=== PATIENT | female | born 1995 | race Caucasian/White ===

== ENCOUNTER 2016-07-31 16:34 | Emergency (ER) | payer OTHER | END 2016-07-31 18:15 | disposition home or self-care (01) | DX: S00.83XA Contusion of other part of head, initial encounter (principal); W01.0XXA Fall on same level from slipping, tripping and stumbling without subsequent striking against object, initial encounter; F17.200 Nicotine dependence, unspecified, uncomplicated ==

== ENCOUNTER 2016-09-18 21:49 | Emergency (ER) | payer OTHER ==
--- NOTE | 2016-09-18 22:10 | ED Physician Documentation ---
PD HPI ABD PAIN - Stated complaint Stated Complaint: PAIN IN KIDNEY AREA - Chief complaint Chief Complaint: UTI - History obtained from History obtained from: Patient - History of Present Illness Timing - onset: How many weeks ago (2) Timing - duration: Weeks (2 weeks of mild pains in left flank and lumbar area, with significant worsening the past 2 days. No noted injury. Feels similar to kidney infections in the past, not feeling exactly like stones. Has had some lower abd pain left side the past 2 days.) Timing - details: Gradual onset, Waxing and waning (with marked worsening the past 2 days) Quality: Aching, Sharp, Pain Location: LLQ Radiation: Lower back, Left flank Improved by: Laying still, Position. No: Eating Worsened by: Moving, Position, Palpation. No: Eating, Breathing Associated symptoms: Nausea. No: Fever, Vomiting, Diarrhea, Constipation, Dysuria, Loss of appetite, Vaginal bleeding, Vaginal dc Similar symptoms before: Diagnosis (UTI and kidney stones in the past.) Recently seen: Not recently seen Review of Systems Constitutional: denies: Fever, Chills Nose: denies: Rhinorrhea / runny nose, Congestion Throat: denies: Sore throat Respiratory: denies: Cough GI: reports: Nausea. denies: Vomiting, Diarrhea, Bloody / black stool : denies: Dysuria, Frequency, Hematuria, Discharge Skin: denies: Rash, Lesions Neurologic: denies: Focal weakness, Numbness, Near syncope PD PAST MEDICAL HISTORY - Past Medical History Cardiovascular: None Respiratory: None Neuro: None Endocrine/Autoimmune: None : Kidney stones, Other (utis) - Past Surgical History Past Surgical History: No - Present Medications Home Medications: Ambulatory Orders Medication Instructions Recorded Confirmed Ibuprofen [Motrin] 400 mg PO Q6H PRN #20 tablet 01/19/16 09/18/16 Dexamethasone [Decadron] 4 mg PO DAILY #5 tablet 09/18/16 Hydrocodone/Acetaminophen [Kent 1 each PO Q6H PRN #20 tablet 09/18/16 5-325 Tablet] Ibuprofen [Motrin] 600 mg PO TID #30 tab 09/18/16 Methocarbamol [Robaxin] 500 mg PO Q6H PRN #25 tablet 09/18/16 - Allergies Allergies/Adverse Reactions: Allergies Allergy/AdvReac Type Severity Reaction Status Date / Time No Known Drug Allergies Allergy Verified 09/18/16 22:00 - Social History Does the pt smoke?: Yes Smoking Status: Current every day smoker Does the pt drink ETOH?: Yes Does the pt have substance abuse?: No - Immunizations Immunizations are current?: Yes - POLST Patient has POLST: No PD ED PE NORMAL - Vitals Vital signs reviewed: Yes - General General: Alert and oriented X 3, Well developed/nourished, Other (appears in pain and guarding movement of lumbar back) - HEENT HEENT: Atraumatic - Neck Neck: Supple, no meningeal sign, No adenopathy - Cardiac Cardiac: RRR, No murmur - Respiratory Respiratory: Clear bilaterally - Abdomen Abdomen: Normal bowel sounds, Soft, Non distended, No organomegaly, Other (mild tender left lateral abdomen without guarding nor percussion tenderness. ) - Female Female : Deferred - Rectal Rectal: Deferred - Back Back: No spinal TTP, Other (tender left lumbar and CVA area to percussion, some to palpation. ) - Derm Derm: Normal color, Warm and dry - Extremities Extremities: No tenderness to palpate, Normal ROM s pain, No edema - Neuro Neuro: Alert and oriented X 3, No motor deficit, Normal speech - Psych Psych: Normal mood, Normal affect Results - Vitals Vitals: Vital Signs - 24 hr 09/18/16 09/18/16 09/18/16 21:57 23:11 23:52 Temperature 36.6 C 36.9 C Heart Rate 84 90 74 Respiratory 18 16 16 Rate Blood Pressure 144/79 H 154/95 H 122/70 O2 Saturation 100 100 98 Oxygen O2 Source Room air - Labs Labs: Laboratory Tests 09/18/16 09/18/16 22:04 22:04 Urine Color YELLOW Urine Clarity CLEAR Urine pH 6.0 Ur Specific [place] 1.010 1.010 Urine Protein NEGATIVE Urine Glucose (UA) NEGATIVE Urine Ketones 15 H Urine Occult Blood NEGATIVE Urine Nitrite NEGATIVE Urine Bilirubin NEGATIVE Urine Urobilinogen 0.2 (NORMAL) Ur Leukocyte Esterase NEGATIVE Ur Microscopic Review NOT INDICATED Urine Culture Comments NOT INDICATED Urine HCG, Qual NEGATIVE - Rads (name of study) KUB CT Radiology: Prelim report reviewed, EMP read contemporaneously (no stones, no hydro, no acute process seen. ) PD MEDICAL DECISION MAKING - ED course Complexity details: considered differential (her pain is worse with ROM and also with palpation in upper lumbar, more to left. CT is normal and UA is clear. Abd is not tender. Presume muscular back pain, without other obvious cause at this time. Given pain meds here with moderate improvement in pain. She says she feels comofrtable enough for now. ), d/w patient Departure - Departure Disposition: 01 Home, Self Care Clinical Impression: Flank pain, acute Clinical Impression: (Ruled Out): Urinary tract infection Condition: Stable Record reviewed to determine appropriate education?: Yes Instructions: ED Flank Pain Uncertain Cause Follow-Up: [facility] [Provider Group] Prescriptions: Dexamethasone [Decadron] 4 mg PO DAILY #5 tablet Ibuprofen [Motrin] 600 mg PO TID #30 tab Hydrocodone/Acetaminophen [Kent 5-325 Tablet] 1 each PO Q6H PRN #20 tablet PRN Reason: Pain Methocarbamol [Robaxin] 500 mg PO Q6H PRN #25 tablet PRN Reason: Spasms Comments: Your CT scan and urine tests are okay, so not infection nor stones. No other obvious cause for the pain on CT either. Seems musculoskeletal at this point. Decadron daily for 5 days for inflammation. Ibuprofen three times daily with food. Robaxin for muscle stiffness/spasm. Hydrocodone for pain as needed. Heat and stretching to the area. Follow up with PMD in the next 2-3 days, call for appt. Discharge Date/Time: 09/18/16 23:52
[2016-09-18 22:11] LABS: BILIRUBIN,URINE NEGATIVE (NEGATIVE)
[2016-09-18 22:17] LABS: HCG UR QUAL NEGATIVE; UA CHARGE (STRIP ONLY) YES; UR CULTURE IF IND NOT INDICATED
[2016-09-18] MEDS ORDERED: PROMETHAZINE 25 MG/1 ML VIAL IM STA (22:23)
[2016-09-18] MEDS ORDERED: HYDROmorphone 1 MG/ML SYRINGE IM STA ×2 (22:23→23:21)
[2016-09-18] MEDS ORDERED: KETOROLAC 60 MG/2 ML VIAL IM STA (22:23)
[2016-09-18] MEDS ORDERED: PROMETHAZINE 25 MG/1 ML VIAL ONE (22:28)
[2016-09-18] MEDS ORDERED: KETOROLAC 60 MG/2 ML VIAL ONE (22:28)
[2016-09-18] MEDS ORDERED: HYDROmorphone 1 MG/ML SYRINGE ONE ×2 (22:28→23:24)
--- NOTE | 2016-09-18 22:59 | CT Preliminary Report ---
Exam: CT KUB IMPRESSION: Unremarkable noncontrast CT of the abdomen and pelvis. No urinary tract stones or obstruction. [facility] SITE ID: [id number]
--- NOTE | 2016-09-18 23:01 | CT Report ---
EXAM: CT ABDOMEN AND PELVIS (CT KUB) EXAM DATE: 09/18/2016 10:41 PM. CLINICAL HISTORY: Left flank pain. COMPARISONS: None. TECHNIQUE: Routine axial helical CT imaging was performed through the abdomen and pelvis without IV c ontrast. Reconstructions: Coronal and sagittal. In accordance with CT protocol optimization, one or more of the following dose reduction techniques w ere utilized for this exam: automated exposure control, adjustment of mA and/or KV based on patient s ize, or use of iterative reconstructive technique. FINDINGS: Lung Bases: Unremarkable. Right Kidney/Ureter: No stones, hydronephrosis, or hydroureter. No perinephric fat stranding. Left Kidney/Ureter: No stones, hydronephrosis, or hydroureter. No perinephric fat stranding. Other Solid Organs: Noncontrast images of the solid organs are grossly unremarkable. Gallbladder/Bile Ducts: Unremarkable. Peritoneal Cavity: No free fluid, free air or alton adenopathy. Bowel is grossly unremarkable. Normal appendix noted. Pelvic Organs: No bladder stones or wall thickening. Noncontrast images of the visualized pelvic orga ns are unremarkable. Vasculature: Unremarkable. Other: None. IMPRESSION: No urinary tract stones or obstruction. [facility] Referring Provider Line: [phone] SITE ID: [id number]
[2016-09-18] MEDS ORDERED: HYDROcod/ACET 5/325 Prepack 6 PO ONE ×2 (23:08→23:15)
[2016-09-18] MEDS ORDERED: METHOCARBAMOL 500 MG TABLET PO STA (23:08)
[2016-09-18] MEDS ORDERED: METHOCARBAMOL 500 MG TABLET PO ONE (23:15)
[2016-09-18 23:54] VITALS: BP 122/70
== END 2016-09-18 23:52 | disposition home or self-care (01) ==
LOC: ED 21:49
DX: R10.32 Left lower quadrant pain (principal); Z87.442 Personal history of urinary calculi; F17.200 Nicotine dependence, unspecified, uncomplicated
CPT/HCPCS: 74176; 81003; 81025; 96372; 99283; 99284; A9270; J1170; 81001; 87086